=== PATIENT | male | born 1955 | race African-American/Black ===

== ENCOUNTER 2017-12-09 16:22 | Inpatient (IN) | payer OTHER ==
[~2017-12-09] VITALS: Ht 180.3 cm; Wt 95.5 kg
[2017-12-09] MEDS ORDERED: CARV12 PO (16:30)
[2017-12-09] MEDS ORDERED: LISI-660 PO (16:30)
[2017-12-09] MEDS ORDERED: HYDR10TA31 PO (16:30)
[2017-12-09] MEDS ORDERED: SPIR25 PO (16:30)
[2017-12-09] MEDS ORDERED: BUME1TAB17 PO (16:30)
[2017-12-09] MEDS ORDERED: ASPI81 PO (16:30)
[2017-12-09] MEDS ORDERED: PHENY100 PO (16:32)
[2017-12-09] MEDS ORDERED: HYDR25TA84 PO (16:40)
[2017-12-09] MEDS ORDERED: ALBUTEROL SULFATE 5 MG/ML 20 ML NEB SOLN [BULK] NEB ONE (19:30)
[2017-12-09] MEDS ORDERED: IPRATROPIUM BROMIDE 0.5 MG/2.5 ML NEB SOLUTION NEB ONE (19:30)
[2017-12-09] MEDS ORDERED: 0.9% SODIUM CHLORIDE 5 ML NEB SOLUTION NEB ONE (19:32)
[2017-12-09 19:42] LABS: BASOPHILS % (AUTO) 1.6 % (0.0-2.0); EOSINOPHILS % (AUTO) 4.2 % (1.0-6.0); HEMATOCRIT 38.6 % (41-53); HEMOGLOBIN 13.4 g/dL (13.5-17.5); LYMPHOCYTES # (AUTO) 1.4 K/uL (1.0-4.8); MEAN CORPUSCULAR HEMOGLOBIN 32.5 pg (26.0-34.0); MEAN CORPUSCULAR HGB CONC 34.7 G/dL (31.0-37.0); MEAN CORPUSCULAR VOLUME 94 fL (80-100); MONOCYTES # (AUTO) 0.4 K/uL (0.1-1.0); MONOCYTES % (AUTO) 10.5 % (2.0-9.0); NEUTROPHILS # (AUTO) 2.1 K/uL (1.8-7.7); NEUTROPHILS % (AUTO) 50.7 % (40.0-70.0); PLATELET COUNT (AUTO) 168 K/uL (150-450); RED BLOOD CELL COUNT(AUTO) 4.12 MIL/uL (4.50-5.90); RED CELL DISTRIBUTION WIDTH 12.8 % (11.5-14.5)
[2017-12-09 19:59] LABS: INR 1.1 (0.9-1.1); PROTHROMBIN TIME 11.5 SEC (9.4-11.6)
[2017-12-09 20:08] LABS: B-TYPE NATRIURETIC PEPTIDE 1030 pg/mL (0-100)
[2017-12-09 20:18] LABS: ANION GAP 10 mmol/L (8-16); CALCIUM, TOTAL 9.3 mg/dL (8.8-10.5); CARBON DIOXIDE 24 mmol/L (22-29); CHLORIDE 103 mmol/L (98-107); GLOMERULAR FILTR. RATE CALC > 60 mL/min (>60); GLUCOSE,RANDOM 87 mg/dL (70-110); POTASSIUM 3.8 mmol/L (3.5-5.1); SODIUM SERUM 137 mmol/L (136-145); UREA NITROGEN, BLOOD 16 mg/dL (7-18)
[2017-12-09 20:21] LABS: AMPHET/METH SCREEN,URINE NEGATIVE (NEGATIVE); APPEARANCE,URINE CLEAR (CLEAR); BARBITURATE SCREEN, URINE NEGATIVE (NEGATIVE); BENZODIAZEPINES SCREEN,URINE NEGATIVE (NEGATIVE); BILIRUBIN,URINE NEGATIVE (NEGATIVE); CANNABINOID SCREEN,URINE NEGATIVE (NEGATIVE); COCAINE SCREEN,URINE NEGATIVE (NEGATIVE); GLUCOSE, URINE (UA) NEGATIVE (NEGATIVE); KETONES,URINE NEGATIVE (NEGATIVE); LEUKOCYTE ESTERASE ,URINE NEGATIVE (NEGATIVE); METHADONE SCREEN, URINE NEGATIVE (NEGATIVE); NITRATE,URINE NEGATIVE (NEGATIVE); OCCULT BLOOD,URINE NEGATIVE (NEGATIVE); OPIATE SCREEN,URINE NEGATIVE (NEGATIVE); PHENCYCLIDINE SCREEN,URINE NEGATIVE (NEGATIVE); PROTEIN,URINE NEGATIVE (NEGATIVE); UROBILINOGEN,URINE 0.2 mg/dL (<=1.0)
[2017-12-09 20:24] LABS: ALANINE AMINOTRANSFERASE 48 U/L (12-78); ALBUMIN 3.5 g/dL (3.4-5.0); ALKALINE PHOSPHATASE 83 U/L (46-116); ASPARTATE AMINOTRANSFERASE 31 U/L (15-37); BILIRUBIN,TOTAL 0.6 mg/dL (0.1-1.0); TOTAL PROTEIN, SERUM 6.7 g/dL (6.4-8.2)
[2017-12-09] MEDS: BUMETANIDE 0.25 MG/ML 4 ML VIAL IVP ONE ×2 (20:38→21:03)
[2017-12-09 20:48] LABS: PHENYTOIN (DILANTIN) < 0.5 mcg/mL (10.0-20.0)
[2017-12-09] MEDS ORDERED: ONDANSETRON HCL 4 MG/2 ML VIAL IVP PRN (21:00)
[2017-12-09] MEDS ORDERED: IPRATROPIUM BROMIDE 0.5 MG/2.5 ML NEB SOLUTION NEB PRN (21:00)
[2017-12-09] MEDS ORDERED: ALBUTEROL SULFATE 2.5 MG/0.5 ML NEB SOLUTION NEB PRN (21:00)
[2017-12-09] MEDS ORDERED: ACETAMINOPHEN 325 MG TABLET PO PRN (21:00)
[2017-12-09] MEDS ORDERED: 0.9% SODIUM CHLORIDE 10 ML SYRINGE IVP PRN (21:00)
[2017-12-09] MEDS: BUMETANIDE 0.25 MG/ML 10 ML VIAL IVP SCH (23:30)
[2017-12-09 23:59] VITALS: BP 123/82
[2017-12-10] MEDS: PHENYTOIN SODIUM 100 MG ER CAPSULE PO SCH ×2 (00:21→21:15)
[2017-12-10] MEDS: POTASSIUM CHLORIDE 10 MEQ ER TABLET PO SCH ×3 (00:21→21:15)
[2017-12-10] MEDS: CARVEDILOL 12.5 MG TABLET PO SCH ×3 (00:22→21:15)
[2017-12-10 05:51] VITALS: BP 107/57
[2017-12-10 07:31] VITALS: BP 110/66
[2017-12-10] MEDS: LISINOPRIL 5 MG TABLET PO SCH (09:14)
[2017-12-10] MEDS: ASPIRIN 81 MG CHEWABLE TABLET PO SCH (09:15)
[2017-12-10] MEDS: SPIRONOLACTONE 25 MG TABLET PO SCH (10:54)
[2017-12-10] MEDS: BUMETANIDE 0.25 MG/ML 10 ML VIAL IVP SCH ×2 (11:15→22:10)
[2017-12-10 11:39] VITALS: BP 95/65
[2017-12-10 15:40] VITALS: BP 103/67
[2017-12-10 19:46] VITALS: BP 96/58
[2017-12-10 23:39] VITALS: BP 94/61
[2017-12-11 04:50] VITALS: BP 102/70
[2017-12-11 07:40] VITALS: BP 107/72
[2017-12-11] MEDS: BUMETANIDE 0.25 MG/ML 10 ML VIAL IVP SCH ×3 (09:37→20:54)
[2017-12-11] MEDS: POTASSIUM CHLORIDE 10 MEQ ER TABLET PO SCH ×2 (09:38→20:44)
[2017-12-11] MEDS: ASPIRIN 81 MG CHEWABLE TABLET PO SCH (09:38)
[2017-12-11] MEDS: SPIRONOLACTONE 25 MG TABLET PO SCH (09:38)
[2017-12-11] MEDS: LISINOPRIL 5 MG TABLET PO SCH (09:38)
[2017-12-11] MEDS: CARVEDILOL 12.5 MG TABLET PO SCH ×2 (09:39→20:43)
[2017-12-11 11:21] VITALS: BP 106/74
[2017-12-11] MEDS: HEPARIN SODIUM,PORCINE 5,000 UNITS/ML VIAL SQ SCH ×2 (16:00→23:58)
[2017-12-11 16:03] VITALS: BP 117/75
[2017-12-11 19:34] VITALS: BP 110/68
[2017-12-11] MEDS: PHENYTOIN SODIUM 100 MG ER CAPSULE PO SCH (20:44)
[2017-12-11 23:42] VITALS: BP 108/57
[2017-12-12 04:10] VITALS: BP 101/60
[2017-12-12 06:47] LABS: HEMATOCRIT 40.3 % (41-53); HEMOGLOBIN 13.8 g/dL (13.5-17.5); MEAN CORPUSCULAR HEMOGLOBIN 32.1 pg (26.0-34.0); MEAN CORPUSCULAR HGB CONC 34.3 G/dL (31.0-37.0); MEAN CORPUSCULAR VOLUME 94 fL (80-100); PLATELET COUNT (AUTO) 174 K/uL (150-450); RED CELL DISTRIBUTION WIDTH 12.9 % (11.5-14.5)
[2017-12-12 07:06] LABS: ANION GAP 7 mmol/L (8-16); CALCIUM, TOTAL 8.9 mg/dL (8.8-10.5); CARBON DIOXIDE 29 mmol/L (22-29); CHLORIDE 103 mmol/L (98-107); CREATININE 1.41 mg/dL (0.60-1.30); GLOMERULAR FILTR. RATE CALC > 60 mL/min (>60); GLUCOSE,RANDOM 104 mg/dL (70-110); POTASSIUM 3.8 mmol/L (3.5-5.1); SODIUM SERUM 139 mmol/L (136-145); UREA NITROGEN, BLOOD 16 mg/dL (7-18)
[2017-12-12 07:23] VITALS: BP 151/82
[2017-12-12 08:34] LABS: INR 1.1 (0.9-1.1); PROTHROMBIN TIME 11.3 SEC (9.4-11.6)
[2017-12-12 09:43] LABS: EOSINOPHILS % (MANUAL) 2 % (1-6); LYMPHOCYTES % (MANUAL) 44 % (22-44); MONOCYTES % (MANUAL) 18 % (2-9); SEGMENTED NEUTROPHILS % 36 % (40-70)
[2017-12-12] MEDS: HEPARIN SODIUM,PORCINE 5,000 UNITS/ML VIAL SQ SCH ×3 (10:14→20:49)
[2017-12-12] MEDS: LISINOPRIL 5 MG TABLET PO SCH (10:15)
[2017-12-12] MEDS: CARVEDILOL 12.5 MG TABLET PO SCH ×2 (10:15→20:45)
[2017-12-12] MEDS: POTASSIUM CHLORIDE 10 MEQ ER TABLET PO SCH ×2 (10:15→20:45)
[2017-12-12] MEDS: SPIRONOLACTONE 25 MG TABLET PO SCH (10:15)
[2017-12-12] MEDS: ASPIRIN 81 MG CHEWABLE TABLET PO SCH (10:15)
[2017-12-12] MEDS: BUMETANIDE 0.25 MG/ML 10 ML VIAL IVP SCH (10:15)
[2017-12-12 11:30] VITALS: BP 99/65
[2017-12-12 15:29] VITALS: BP 109/62
[2017-12-12 19:26] VITALS: BP 95/65
[2017-12-12] MEDS: PHENYTOIN SODIUM 100 MG ER CAPSULE PO SCH (20:44)
[2017-12-12] MEDS: BUMETANIDE 1 MG TABLET PO SCH (20:45)
[2017-12-13 00:32] VITALS: BP 94/62
[2017-12-13] MEDS: MORPHINE SULFATE 2 MG/ML SYRINGE IVP PRN (01:06)
[2017-12-13 04:55] VITALS: BP 97/64
[2017-12-13] MEDS: NITROGLYCERIN 2% (1 GM=INCH) PACKET TP SCH ×4 (06:41→23:38)
[2017-12-13 07:09] VITALS: BP 107/68
[2017-12-13] MEDS: CARVEDILOL 12.5 MG TABLET PO SCH ×2 (08:34→20:27)
[2017-12-13] MEDS: ASPIRIN 81 MG CHEWABLE TABLET PO SCH (08:35)
[2017-12-13] MEDS: POTASSIUM CHLORIDE 10 MEQ ER TABLET PO SCH ×2 (08:35→20:27)
[2017-12-13] MEDS: LISINOPRIL 5 MG TABLET PO SCH (08:35)
[2017-12-13] MEDS: BUMETANIDE 1 MG TABLET PO SCH ×2 (08:35→20:27)
[2017-12-13] MEDS: SPIRONOLACTONE 25 MG TABLET PO SCH (08:35)
[2017-12-13] MEDS: HEPARIN SODIUM,PORCINE 5,000 UNITS/ML VIAL SQ SCH ×3 (08:36→23:38)
[2017-12-13 11:29] VITALS: BP 97/47
[2017-12-13 15:08] VITALS: BP 103/67
[2017-12-13 20:24] VITALS: BP 106/65
[2017-12-13] MEDS: PHENYTOIN SODIUM 100 MG ER CAPSULE PO SCH (20:27)
[2017-12-14 00:24] VITALS: BP 90/51
[2017-12-14 05:10] VITALS: BP 104/67
[2017-12-14] MEDS: NITROGLYCERIN 2% (1 GM=INCH) PACKET TP SCH ×3 (06:00→18:10)
[2017-12-14 06:45] LABS: BASOPHILS % (AUTO) 1.2 % (0.0-2.0); EOSINOPHILS % (AUTO) 6.4 % (1.0-6.0); HEMATOCRIT 43.7 % (41-53); HEMOGLOBIN 14.8 g/dL (13.5-17.5); LYMPHOCYTES # (AUTO) 1.2 K/uL (1.0-4.8); LYMPHOCYTES % (AUTO) 39.2 % (22.0-44.0); MEAN CORPUSCULAR HEMOGLOBIN 31.7 pg (26.0-34.0); MEAN CORPUSCULAR HGB CONC 33.9 G/dL (31.0-37.0); MEAN CORPUSCULAR VOLUME 94 fL (80-100); MONOCYTES # (AUTO) 0.6 K/uL (0.1-1.0); MONOCYTES % (AUTO) 18.5 % (2.0-9.0); NEUTROPHILS # (AUTO) 1.1 K/uL (1.8-7.7); NEUTROPHILS % (AUTO) 34.7 % (40.0-70.0); PLATELET COUNT (AUTO) 201 K/uL (150-450); RED BLOOD CELL COUNT(AUTO) 4.68 MIL/uL (4.50-5.90); RED CELL DISTRIBUTION WIDTH 12.5 % (11.5-14.5)
[2017-12-14 07:10] LABS: ANION GAP 10 mmol/L (8-16); CARBON DIOXIDE 28 mmol/L (22-29); CHLORIDE 100 mmol/L (98-107); CREATININE 1.36 mg/dL (0.60-1.30); GLOMERULAR FILTR. RATE CALC > 60 mL/min (>60); GLUCOSE,RANDOM 107 mg/dL (70-110); SODIUM SERUM 138 mmol/L (136-145); UREA NITROGEN, BLOOD 27 mg/dL (7-18)
[2017-12-14 07:25] LABS: B-TYPE NATRIURETIC PEPTIDE 111 pg/mL (0-100)
[2017-12-14 08:03] VITALS: BP 108/76
[2017-12-14] MEDS: SPIRONOLACTONE 25 MG TABLET PO SCH (08:03)
[2017-12-14] MEDS: ASPIRIN 81 MG CHEWABLE TABLET PO SCH (08:03)
[2017-12-14] MEDS: POTASSIUM CHLORIDE 10 MEQ ER TABLET PO SCH ×2 (08:03→20:29)
[2017-12-14] MEDS: CARVEDILOL 12.5 MG TABLET PO SCH ×2 (08:03→20:29)
[2017-12-14] MEDS: HEPARIN SODIUM,PORCINE 5,000 UNITS/ML VIAL SQ SCH ×2 (08:03→16:36)
[2017-12-14] MEDS: BUMETANIDE 1 MG TABLET PO SCH ×2 (08:04→20:29)
[2017-12-14] MEDS: LISINOPRIL 5 MG TABLET PO SCH ×2 (08:04→11:20)
[2017-12-14 11:02] VITALS: BP 93/63
[2017-12-14 15:48] VITALS: BP 103/63
[2017-12-14 20:08] VITALS: BP 120/55
[2017-12-14] MEDS: PHENYTOIN SODIUM 100 MG ER CAPSULE PO SCH (20:28)
[2017-12-15 00:37] VITALS: BP 98/51
[2017-12-15 05:50] VITALS: BP 107/74
[2017-12-15] MEDS: NITROGLYCERIN 2% (1 GM=INCH) PACKET TP SCH ×4 (06:00→15:32)
[2017-12-15 07:48] VITALS: BP 104/73
[2017-12-15 08:35] LABS: BASOPHILS % (AUTO) 1.2 % (0.0-2.0); EOSINOPHILS % (AUTO) 6.7 % (1.0-6.0); HEMATOCRIT 46.3 % (41-53); HEMOGLOBIN 16.2 g/dL (13.5-17.5); LYMPHOCYTES # (AUTO) 1.3 K/uL (1.0-4.8); LYMPHOCYTES % (AUTO) 44.6 % (22.0-44.0); MEAN CORPUSCULAR HEMOGLOBIN 32.7 pg (26.0-34.0); MEAN CORPUSCULAR VOLUME 93 fL (80-100); MONOCYTES # (AUTO) 0.4 K/uL (0.1-1.0); MONOCYTES % (AUTO) 15.1 % (2.0-9.0); NEUTROPHILS # (AUTO) 0.9 K/uL (1.8-7.7); NEUTROPHILS % (AUTO) 32.4 % (40.0-70.0); PLATELET COUNT (AUTO) 230 K/uL (150-450); RED BLOOD CELL COUNT(AUTO) 4.96 MIL/uL (4.50-5.90); RED CELL DISTRIBUTION WIDTH 12.7 % (11.5-14.5)
[2017-12-15] MEDS: HEPARIN SODIUM,PORCINE 5,000 UNITS/ML VIAL SQ SCH ×3 (08:35→15:33)
[2017-12-15] MEDS: BUMETANIDE 1 MG TABLET PO SCH ×2 (08:35→21:12)
[2017-12-15] MEDS: CARVEDILOL 12.5 MG TABLET PO SCH ×2 (08:36→21:12)
[2017-12-15] MEDS: POTASSIUM CHLORIDE 10 MEQ ER TABLET PO SCH ×2 (08:36→21:12)
[2017-12-15] MEDS: ASPIRIN 81 MG CHEWABLE TABLET PO SCH (08:36)
[2017-12-15 08:41] LABS: ANION GAP 6 mmol/L (8-16); CALCIUM, TOTAL 9.1 mg/dL (8.8-10.5); CARBON DIOXIDE 29 mmol/L (22-29); CHLORIDE 101 mmol/L (98-107); GLOMERULAR FILTR. RATE CALC > 60 mL/min (>60); GLUCOSE,RANDOM 102 mg/dL (70-110); POTASSIUM 4.5 mmol/L (3.5-5.1); SODIUM SERUM 136 mmol/L (136-145); UREA NITROGEN, BLOOD 25 mg/dL (7-18)
[2017-12-15] MEDS: SPIRONOLACTONE 25 MG TABLET PO SCH (09:00)
[2017-12-15 09:03] LABS: B-TYPE NATRIURETIC PEPTIDE 103 pg/mL (0-100)
[2017-12-15 11:55] VITALS: BP 107/73
[2017-12-15] MEDS: LISINOPRIL 5 MG TABLET PO SCH (13:00)
[2017-12-15] MEDS: MORPHINE SULFATE 2 MG/ML SYRINGE IVP PRN (15:33)
[2017-12-15 20:25] VITALS: BP 113/60
[2017-12-15] MEDS: PHENYTOIN SODIUM 100 MG ER CAPSULE PO SCH (21:00)
[2017-12-16 05:20] VITALS: BP 92/53
[2017-12-16] MEDS: NITROGLYCERIN 2% (1 GM=INCH) PACKET TP SCH ×4 (06:00→17:17)
[2017-12-16 07:45] VITALS: BP 82/51
[2017-12-16] MEDS: LISINOPRIL 5 MG TABLET PO SCH (09:00)
[2017-12-16] MEDS: SPIRONOLACTONE 25 MG TABLET PO SCH (09:00)
[2017-12-16] MEDS: CARVEDILOL 12.5 MG TABLET PO SCH (09:00)
[2017-12-16] MEDS: HEPARIN SODIUM,PORCINE 5,000 UNITS/ML VIAL SQ SCH ×3 (09:12→17:17)
[2017-12-16] MEDS: BUMETANIDE 1 MG TABLET PO SCH (09:12)
[2017-12-16] MEDS: POTASSIUM CHLORIDE 10 MEQ ER TABLET PO SCH (09:12)
[2017-12-16] MEDS: ASPIRIN 81 MG CHEWABLE TABLET PO SCH (09:13)
[2017-12-16 11:24] VITALS: BP 93/54
[2017-12-16 15:25] VITALS: BP 88/58
[2017-12-16] MEDS ORDERED: MORPHINE SULFATE 4 MG/ML SYRINGE IVP PRN (17:30)
[2017-12-16] MEDS ORDERED: BUME1TAB17 PO (18:09)
== END 2017-12-16 21:15 | disposition home or self-care (01) | DRG 194 ==
LOC: EMS 16:23 → 5S 22:25 → 5N 12-10 04:41 → 5S 12-12 18:25
PROVIDERS: ADMIT Internal Medicine; ATTEND Internal Medicine
DX: I11.0 Hypertensive heart disease with heart failure (principal); I47.2 Ventricular tachycardia; I50.23 Acute on chronic systolic (congestive) heart failure; I42.9 Cardiomyopathy, unspecified; G40.409 Other generalized epilepsy and epileptic syndromes, not intractable, without status epilepticus; I25.10 Atherosclerotic heart disease of native coronary artery without angina pectoris; I49.3 Ventricular premature depolarization; J44.9 Chronic obstructive pulmonary disease, unspecified; N40.0 Benign prostatic hyperplasia without lower urinary tract symptoms; Z59.0 Homelessness; Z91.11 Patient's noncompliance with dietary regimen; Z88.6 Allergy status to analgesic agent; Z88.0 Allergy status to penicillin; Z87.891 Personal history of nicotine dependence; Z82.49 Family history of ischemic heart disease and other diseases of the circulatory system; Z83.3 Family history of diabetes mellitus
CPT/HCPCS: 83735; 85007; 87081; 93005; 93306; 94644; 96374; 99285; J1644; J2270; J3490